=== PATIENT | female | born 1950 | race Asian ===

== ENCOUNTER 2023-01-04 05:09 | Day surgery (SDC) | payer OTHER ==
[2023-01-03 15:23] VITALS: BMI 25.4
[2023-01-04 08:57] VITALS: TEMP 97.8
[2023-01-04 10:50] VITALS: RESP 18
[2023-01-04 10:58] VITALS: BP 125/65; PULSE 65
== END 2023-01-04 10:58 | disposition home or self-care (01) ==
LOC: JASU-ENDO 05:09
PROVIDERS: ATTEND Internal Medicine Gastroenterology
PROC: 0DB68ZX Excision of Stomach, Via Natural or Artificial Opening Endoscopic, Diagnostic (ICD-10-PCS; 2023-01-04)
PROC: 0DB78ZX Excision of Stomach, Pylorus, Via Natural or Artificial Opening Endoscopic, Diagnostic (ICD-10-PCS; 2023-01-04)
PROC: 0DBH8ZX Excision of Cecum, Via Natural or Artificial Opening Endoscopic, Diagnostic (ICD-10-PCS; principal; 2023-01-04 10:30)
DX: Z12.11 Encounter for screening for malignant neoplasm of colon (principal); D12.0 Benign neoplasm of cecum; K57.30 Diverticulosis of large intestine without perforation or abscess without bleeding; K29.50 Unspecified chronic gastritis without bleeding
CPT/HCPCS: 88305-TC; 88342-TC